=== PATIENT | female | born 1970 | race Hispanic/Latino ===

== ENCOUNTER 2019-11-15 09:03 | Outpatient (CLI) | payer MEDICARE, MEDICAID ==
--- NOTE | 2019-11-18 13:28 | MMO ---
Bilateral MAMMO Bilat Screen [facility]. CLINICAL HISTORY: Patient is 49 years old and is seen for screening. The patient has no family history of breast cancer. The patient has no personal history of cancer. VIEWS: The views performed were: bilateral craniocaudal with tomosynthesis and bilateral mediolateral oblique with tomosynthesis. FILMS COMPARED: The present examination has been compared to prior imaging studies performed at [facility] on 12/11/2005, 01/07/2007 and 01/21/2013, and at [facility] on 01/10/2014. This study has been interpreted with the assistance of computer-aided detection. MAMMOGRAM FINDINGS: The breasts are heterogeneously dense, which could obscure a lesion on mammography. Finding 1: There are stable benign appearing calcifications seen in both breasts. Finding 2: There is a mass measuring 5 millimeters with indistinct margins seen in the CC view only seen in the middle inner region of the right breast. IMPRESSION: FINDING 1: STABLE CALCIFICATIONS IN BOTH BREASTS ARE BENIGN. FINDING 2: MASS IN THE RIGHT BREAST REQUIRES ADDITIONAL EVALUATION. ADDITIONAL PROJECTIONS (LEFT CRANIOCAUDAL SPOT COMPRESSION; LEFT MEDIOLATERAL OBLIQUE SPOT COMPRESSION; LEFT MEDIOLATERAL; LEFT ROLLED LATERAL; AND LEFT ROLLED MEDIAL) ARE RECOMMENDED. AN ULTRASOUND EXAM IS RECOMMENDED IF NEEDED. ADDITIONAL IMAGING. THE RESULTS OF THIS EXAM WERE SENT TO THE PATIENT. ACR BI-RADS Category 0 - Incomplete: Need additional imaging evaluation. [facility] will notify the patient of the need for additional imaging services. MAMMOGRAPHY NOTE: 1. A negative mammogram report should not delay a biopsy if a dominant of clinically suspicious mass is present. 2. Approximately 10% to 15% of breast cancers are not detected by mammography. 3. Adenosis and dense breasts may obscure an underlying neoplasm. Reported by: WILI JULIO MD Electonically Signed: [id number]
== END 2019-11-15 09:04 | disposition home or self-care (01) ==
LOC: BICMAMMO 09:03
PROVIDERS: ATTEND Clinical Nurse Specialist Medical-Surgical
DX: Z12.31 Encounter for screening mammogram for malignant neoplasm of breast (principal); R92.1 Mammographic calcification found on diagnostic imaging of breast; N63.10 Unspecified lump in the right breast, unspecified quadrant
CPT/HCPCS: 77063; 77067

== ENCOUNTER 2019-11-22 10:05 | Outpatient (CLI) | payer MEDICARE, MEDICAID ==
--- NOTE | 2019-11-22 12:21 | ULT ---
LEFT BREAST ULTRASOUND: Date: 11/22/2019 COMPARISON: Mammograms dated 11/22/2019 and 11/15/2019. HISTORY: Focused density seen in the inner aspect of the left breast. TECHNIQUE: Multiplanar Gillette scale and color Doppler images were obtained in a targeted ultrasound of the inner a spect of the left breast. FINDINGS: At the area of mammographic abnormality, there are a couple of very small adjacent cysts with a congl omerate length of approximately 5 mm. No suspicious shadowing or suspicious mass is seen. IMPRESSION: BI-RADS Category 2 - Benign findings. Annual screening mammography is recommended. POS: YARI
--- NOTE | 2019-11-23 14:39 | MMO ---
Left Breast MAMMO Unilat Diag [facility]. CLINICAL HISTORY: Patient is 49 years old and is seen for additional evaluation requested at current screening. The patient has no family history of breast cancer. The patient has no personal history of cancer. VIEWS: The views performed were: left craniocaudal spot compression with tomosynthesis; left mediolateral with tomosynthesis; left rolled lateral with tomosynthesis; and left rolled medial with tomosynthesis. FILMS COMPARED: The present examination has been compared to prior imaging studies performed at [facility] on 01/21/2013, and at [facility] on 01/10/2014, 11/15/2019 and 11/22/2019. This study has been interpreted with the assistance of computer-aided detection. MAMMOGRAM FINDINGS: The breast is heterogeneously dense, which could obscure a lesion on mammography. There is a round mass with circumscribed margins seen in the left breast. The mass was shown to be a cyst on ultrasound. There are no suspicious masses, suspicious calcifications, or new areas of architectural distortion. IMPRESSION: THERE IS NO MAMMOGRAPHIC EVIDENCE OF MALIGNANCY. A ROUTINE FOLLOW-UP MAMMOGRAM IN 1 YEAR IS RECOMMENDED. THE RESULTS OF THIS EXAM WERE SENT TO THE PATIENT. ACR BI-RADS Category 2 - Benign finding MAMMOGRAPHY NOTE: 1. A negative mammogram report should not delay a biopsy if a dominant of clinically suspicious mass is present. 2. Approximately 10% to 15% of breast cancers are not detected by mammography. 3. Adenosis and dense breasts may obscure an underlying neoplasm. Reported by: ALISTAIR SOLIZ MD Electonically Signed: [id number]
== END 2019-11-22 10:06 | disposition home or self-care (01) ==
LOC: BICMAMMO 10:05
PROVIDERS: ATTEND Clinical Nurse Specialist Medical-Surgical
DX: N63.10 Unspecified lump in the right breast, unspecified quadrant (principal)
CPT/HCPCS: 76642; 77065; G0279

== ENCOUNTER 2021-05-08 11:35 | Outpatient (CLI) | payer MEDICARE, MEDICAID | END 2021-05-08 11:36 | disposition home or self-care (01) | LOC: BICMAMMO 11:35 | PROVIDERS: ATTEND Clinical Nurse Specialist Medical-Surgical | DX: Z12.31 Encounter for screening mammogram for malignant neoplasm of breast (principal) | CPT/HCPCS: 77063; 77067 ==

== ENCOUNTER 2021-08-22 12:25 | Outpatient (CLI) | payer MEDICARE, MEDICAID | END 2021-08-22 12:26 | disposition home or self-care (01) | LOC: BICMRI 12:25 | PROVIDERS: ATTEND Nurse Practitioner Acute Care | DX: M50.90 Cervical disc disorder, unspecified, unspecified cervical region (principal); R26.9 Unspecified abnormalities of gait and mobility; M48.02 Spinal stenosis, cervical region; M50.222 Other cervical disc displacement at C5-C6 level; Z98.890 Other specified postprocedural states; Z98.1 Arthrodesis status; M47.812 Spondylosis without myelopathy or radiculopathy, cervical region | CPT/HCPCS: 70553; 72156 ==

== ENCOUNTER 2022-05-17 11:06 | Outpatient (CLI) | payer MEDICARE, MEDICAID | END 2022-05-17 11:07 | disposition home or self-care (01) | LOC: SCSMRI 11:06 | PROVIDERS: ATTEND Surgery | DX: M48.062 Spinal stenosis, lumbar region with neurogenic claudication (principal); M47.26 Other spondylosis with radiculopathy, lumbar region | CPT/HCPCS: 72120; 72148 ==

== ENCOUNTER 2022-09-17 07:27 | Outpatient (CLI) | payer MEDICARE, MEDICAID | END 2022-09-17 07:28 | disposition home or self-care (01) | LOC: NM 07:27 | PROVIDERS: ATTEND Physician Assistant Medical | DX: R11.2 Nausea with vomiting, unspecified (principal); K59.00 Constipation, unspecified; R13.10 Dysphagia, unspecified; G12.20 Motor neuron disease, unspecified | CPT/HCPCS: 78264; A9541 ==

== ENCOUNTER 2023-10-31 14:39 | Outpatient (CLI) | payer OTHER | END 2023-10-31 14:40 | disposition home or self-care (01) | LOC: SCSMRI 14:39 | PROVIDERS: ATTEND Specialist | DX: M51.16 Intervertebral disc disorders with radiculopathy, lumbar region (principal); M47.26 Other spondylosis with radiculopathy, lumbar region; M47.815 Spondylosis without myelopathy or radiculopathy, thoracolumbar region; M47.817 Spondylosis without myelopathy or radiculopathy, lumbosacral region; Z98.890 Other specified postprocedural states | CPT/HCPCS: 72158 ==

== ENCOUNTER 2024-06-30 11:04 | Outpatient (CLI) | payer OTHER | END 2024-06-30 11:05 | disposition home or self-care (01) | LOC: MRI 11:04 | PROVIDERS: ATTEND Surgery | DX: M50.30 Other cervical disc degeneration, unspecified cervical region (principal); M47.812 Spondylosis without myelopathy or radiculopathy, cervical region; M48.02 Spinal stenosis, cervical region | CPT/HCPCS: 72141 ==

== ENCOUNTER 2025-05-18 09:09 | Outpatient (CLI) | payer MEDICARE, MEDICAID | END 2025-05-18 09:10 | disposition home or self-care (01) | LOC: BICCT 09:09 | PROVIDERS: ATTEND Otolaryngology Plastic Surgery within the Head & Neck | DX: R09.81 Nasal congestion (principal); J34.89 Other specified disorders of nose and nasal sinuses; J34.2 Deviated nasal septum ==